=== PATIENT | female | born 1960 | race Caucasian/White ===

== ENCOUNTER → 2018-05-09 | Outpatient (CLI) | payer BC ==
[~2018-05-09] MED LIST: CALTRATE 600600 MG; CENTRUM1 TAB; CYCLOBENZAPRINE10 MG PO; HYCODAN/HYDROMET5 ML PO; LEVAQUIN750 MG PO; NORCO 5-325 TA1 EACH PO; SYNTHROID25 MCG PO; ZITHROMAX Z PA250 MG PO
== END | disposition home or self-care (01) ==
LOC: MAMMO 08:55
DX: Z12.31 Encounter for screening mammogram for malignant neoplasm of breast (principal)

== ENCOUNTER → 2019-09-25 | Outpatient (CLI) | payer BC | END | disposition home or self-care (01) | LOC: MAMMO 08:38 | DX: Z12.31 Encounter for screening mammogram for malignant neoplasm of breast (principal) ==

== ENCOUNTER → 2021-06-02 | Outpatient (CLI) | payer BC | END | disposition home or self-care (01) | LOC: MAMMO 05-05 08:30 | PROVIDERS: ATTEND Internal Medicine | DX: Z12.31 Encounter for screening mammogram for malignant neoplasm of breast (principal) ==

== ENCOUNTER → 2022-06-06 | Outpatient (CLI) | payer BC ==
[2022-06-06 08:58] LABS: ALKALINE PHOSPHATASE 117 U/L (45-117); BUN 8 mg/dl (7-24); CHLORIDE 108 mmol/L (98-107); CREATININE 0.71 mg/dL (0.55-1.02); POTASSIUM 4.3 mmol/L (3.5-5.1); SGOT/AST 10 IU/L (3-35); SGPT/ALT 19 U/L (12-78); SODIUM 145 mmol/L (136-145); TOTAL PROTEIN 7.2 gm/dL (6.4-8.2)
== END | disposition home or self-care (01) ==
LOC: LAB 08:27
PROVIDERS: ATTEND Orthopaedic Surgery
DX: R53.83 Other fatigue (principal)

== ENCOUNTER → 2022-08-05 | Outpatient (CLI) | payer BC | END | disposition home or self-care (01) | LOC: US 15:51 | PROVIDERS: ATTEND Nurse Practitioner Family | DX: M79.89 Other specified soft tissue disorders (principal) ==

== ENCOUNTER → 2022-12-17 | Outpatient (CLI) | payer BC | END | disposition home or self-care (01) | LOC: MAMMO 08:23 | PROVIDERS: ATTEND Internal Medicine | DX: Z12.31 Encounter for screening mammogram for malignant neoplasm of breast (principal) ==

== ENCOUNTER 2023-03-14 15:23 | Emergency (ER) | payer BC ==
[~2023-03-14] VITALS: Ht 175.2 cm; Wt 113.4 kg
[2023-03-14 16:42] LABS: BASO % 0.4 % (0.0-1.0); EOS # 0.2 10*3/uL (0.0-0.4); EOS % 2.1 % (1.0-4.0); HEMATOCRIT 39.3 % (37.0-47.0); LYMPH # 1.9 10*3/uL (1.3-4.4); LYMPH % 17.4 % (27.0-41.0); MEAN CORPUSCULAR HGB 31.3 pg (27.0-31.0); MEAN CORPUSCULAR HGB CONC 33.3 g/dl (33.0-37.0); MEAN PLATELET VOLUME 10.5 fl (9.6-12.3); MONO # 1.2 10*3/uL (0.1-1.0); MONO % 11.1 % (3.0-9.0); NEUT # 7.6 10*3/uL (2.3-7.9); NEUT % 68.6 % (47.0-73.0); PLATELET COUNT AUTOMATED 191 10*3/uL (130-400); RED BLOOD COUNT 4.18 10*6/uL (4.10-5.10); RED CELL DISTRI WIDTH 13.2 % (0-14.5); WHITE BLOOD COUNT 11.1 10*3/uL (4.8-10.8)
[2023-03-14 16:55] LABS: ACT PARTIAL THROMBO TIME 26.5 SECONDS (20.0-32.1)
[2023-03-14 17:05] LABS: ALKALINE PHOSPHATASE 98 U/L (46-116); BUN 8 mg/dl (9-23); CHLORIDE 106 mmol/L (98-107); LIPASE 28 U/L (12-53); POTASSIUM 3.6 mmol/L (3.4-5.1); SGPT/ALT 8 U/L (10-49); TOTAL PROTEIN 6.6 gm/dL (6.0-8.0)
[2023-03-14] MEDS ORDERED: PREDNISONE50 MG PO (19:07)
[2023-03-14] MEDS ORDERED: AMOX-CLAV 875-1 EACH PO (19:07)
== END 2023-03-14 19:47 | disposition home or self-care (01) ==
LOC: ED 15:23
PROVIDERS: Internal Medicine
DX: J18.9 Pneumonia, unspecified organism (principal); E03.9 Hypothyroidism, unspecified; E78.00 Pure hypercholesterolemia, unspecified; Z98.890 Other specified postprocedural states; Z20.822 Contact with and (suspected) exposure to COVID-19

== ENCOUNTER → 2023-11-06 | Outpatient (CLI) | payer BC ==
[~2023-11-06] MED LIST changes: +AMOX-CLAV 875-1 EACH PO; +PREDNISONE50 MG PO
[2023-11-06 09:27] LABS: ALKALINE PHOSPHATASE 88 U/L (46-116); BUN 12 mg/dl (9-23); CHLORIDE 108 mmol/L (98-107); POTASSIUM 3.7 mmol/L (3.4-5.1); SGPT/ALT 14 U/L (5-49); TOTAL PROTEIN 6.9 gm/dL (6.0-8.0)
== END | disposition home or self-care (01) ==
LOC: LAB 08:51
PROVIDERS: ATTEND Orthopaedic Surgery
DX: M25.561 Pain in right knee (principal); R53.83 Other fatigue

== ENCOUNTER → 2024-02-02 | Outpatient (CLI) | payer BC ==
[2024-02-02 08:58] LABS: BASO % 0.5 % (0.0-1.0); EOS # 0.2 10*3/uL (0.0-0.4); EOS % 3.1 % (1.0-4.0); HEMATOCRIT 42.4 % (37.0-47.0); LYMPH # 1.5 10*3/uL (1.3-4.4); LYMPH % 19.8 % (27.0-41.0); MEAN CELL VOLUME 96.1 fl (81.0-99.0); MEAN CORPUSCULAR HGB 30.8 pg (27.0-31.0); MEAN CORPUSCULAR HGB CONC 32.1 g/dl (33.0-37.0); MEAN PLATELET VOLUME 10.4 fl (9.6-12.3); MONO # 0.5 10*3/uL (0.1-1.0); MONO % 6.8 % (3.0-9.0); NEUT # 5.4 10*3/uL (2.3-7.9); NEUT % 69.2 % (47.0-73.0); PLATELET COUNT AUTOMATED 226 10*3/uL (130-400); RED BLOOD COUNT 4.41 10*6/uL (4.10-5.10); WHITE BLOOD COUNT 7.8 10*3/uL (4.8-10.8)
[2024-02-02 10:41] LABS: ALKALINE PHOSPHATASE 97 U/L (46-116); BUN 8 mg/dl (9-23); CHLORIDE 108 mmol/L (98-107); CHOLESTEROL 156 mg/dL (<200); LDL CHOLESTEROL 78 mg/dL (9-159); POTASSIUM 3.9 mmol/L (3.4-5.1); SGPT/ALT 11 U/L (5-49); TOTAL PROTEIN 6.9 gm/dL (6.0-8.0); TRIGLYCERIDES 132 mg/dl (<150)
== END | disposition home or self-care (01) ==
LOC: LAB 08:26
PROVIDERS: ATTEND Nurse Practitioner Family
DX: Z11.59 Encounter for screening for other viral diseases (principal); Z11.4 Encounter for screening for human immunodeficiency virus [HIV]; R73.03 Prediabetes; E55.9 Vitamin D deficiency, unspecified; E78.2 Mixed hyperlipidemia; E03.9 Hypothyroidism, unspecified

== ENCOUNTER → 2024-02-03 | Outpatient (CLI) | payer BC | END | disposition home or self-care (01) | LOC: US 14:43 | PROVIDERS: ATTEND Nurse Practitioner Family | DX: S80.12XA Contusion of left lower leg, initial encounter (principal); X58.XXXA Exposure to other specified factors, initial encounter; Y93.89 Activity, other specified; Y92.89 Other specified places as the place of occurrence of the external cause; Y99.8 Other external cause status ==

== ENCOUNTER → 2025-01-04 | Outpatient (CLI) | payer BC | END | disposition home or self-care (01) | LOC: MAMMO 07:10 | PROVIDERS: ATTEND Nurse Practitioner Women's Health | DX: Z12.31 Encounter for screening mammogram for malignant neoplasm of breast (principal); N64.89 Other specified disorders of breast; R92.323 Mammographic fibroglandular density, bilateral breasts ==